=== PATIENT | female | born 1990 | race Caucasian/White ===

== ENCOUNTER 2017-11-30 21:42 | Emergency (ER) | payer OTHER ==
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
== END 2017-11-30 22:32 | disposition home or self-care (01) ==
LOC: FB.ED 21:42
DX: S00.03XA Contusion of scalp, initial encounter (principal); F17.210 Nicotine dependence, cigarettes, uncomplicated; Z91.040 Latex allergy status; Z91.013 Allergy to seafood; X58.XXXA Exposure to other specified factors, initial encounter; Y09 Assault by unspecified means
CPT/HCPCS: 99000; 99283